=== PATIENT | female | born 2000 | race Two or more races ===

== ENCOUNTER → 2025-02-07 | Outpatient (CLI) | payer MEDICAID, SELFPAY | END | disposition home or self-care (01) | PROVIDERS: Referring Provider Psychiatry & Neurology Neurology; Visit Provider Psychiatry & Neurology Neurology | DX: R56.9 Unspecified convulsions (principal) | CPT/HCPCS: 95816 ==

== ENCOUNTER → 2025-03-27 | Outpatient (CLI) | payer MEDICAID, SELFPAY ==
--- NOTE | 2025-03-27 08:00 | XR_ITS ---
Examination: CT brain head without contrast. 2-D sagittal coronal reconstructions Date and time of exam:March 27, 2025 0809 hours Comparison March 23, 2006 INDICATIONS: Seizures one month ago CTDI: vol (mGy):49.8 DLP: (mGycm):1034 Technique: Multiple CT axial sections of the brain have been obtained, 5 mm slice thickness. Contrast has not been administered. 2-D sagittal, coronal reconstructions have been obtained Low dose protocols were performed. One or more of the following dose reduction techniques were used; automated exposure control, adjustment of the mA and/or KV according to patient size, use of iterative reconstruction technique. Findings: Extensive chronic changes again noted A shunt in unchanged position with enlargement of the trigones bilaterally Encephalomalacia in the left middle cerebral artery distribution No acute hemorrhage Fourth ventricle midline Goldie hole in the right posterior parietal region again noted IMPRESSION: Extensive chronic changes No interval hemorrhage or mass effect compared to the 2006 [address] brain scan
== END | disposition home or self-care (01) ==
LOC: CCTX 07:48
PROVIDERS: Referring Provider Psychiatry & Neurology Neurology; Visit Provider Psychiatry & Neurology Neurology
DX: G80.9 Cerebral palsy, unspecified (principal)
CPT/HCPCS: 70450